=== PATIENT | male | born 1970 | race Hispanic/Latino ===

== ENCOUNTER 2023-03-09 12:08 | Emergency (ER) | payer SELFPAY ==
[~2023-03-09] VITALS: Ht 182.9 cm; Wt 72.0 kg
[2023-03-09] VITALS (8 sets, daily range): BP systolic 107–138; BP diastolic 53–94
[2023-03-09 12:54] LABS: BASO% 0.3 % (0-3); EOS% 0.8 % (0-8); HEMATOCRIT 49.8 % (39.0-50.0); HEMOGLOBIN 16.1 g/dl (14.0-18.0); IMMATURE GRANULOCYTES 0.4 % (0.0-5.0); LYMPH% 10.1 % (15-41); MEAN CELL VOLUME 91.7 fL CALC (80.0-100.0); MEAN CORPUSCULAR HGB 29.7 pG CALC (26.0-32.0); MEAN CORPUSCULAR HGB CONC 32.3 g/dL CAL (32.0-36.0); MONO% 2.6 % (2-13); NEUT# 9.65 thou/uL (1.82-7.42); NEUT% 85.8 % (42-76); RED BLOOD COUNT 5.43 mill/uL (4.70-6.10); RED CELL DISTRI WIDTH 12.4 % (11.5-15.5)
[2023-03-09 13:08] LABS: ALBUMIN 4.5 g/dL (3.2-5.0); ALKALINE PHOSPHATASE 120 u/l (38-126); ANION GAP 12 (6-22 (CALC)); BILIRUBIN, TOTAL 0.6 mg/dL (0.2-1.3); BUN 8 mg/dL (9-20); BUN/CREATININE RATIO 12 (12-20 (CALC)); CARBON DIOXIDE 26 mmol/l (22-30); CHLORIDE 107 mmol/l (95-108); CREATININE 0.7 mg/dL (0.7-1.3); GFR FOR AFR.AMER. > 60 ML/MIN (>=60 (CALC)); GFR OTHER RACES > 60 ML/MIN (>=60 (CALC)); POTASSIUM 4.3 mmol/l (3.5-5.1); SGOT/AST 42 u/l (17-59); SODIUM 140 mmol/l (137-146); TOTAL PROTEIN 8.1 g/dL (6.3-8.2)
[2023-03-09] MEDS ORDERED: ZOFRAN4 MG/TAB PO (14:03)
[2023-03-09] MEDS ORDERED: MECLIZINE 2525 MG PO (14:03)
== END 2023-03-09 14:38 | disposition home or self-care (01) | DRG 149 ==
LOC: ED 12:08
PROVIDERS: Family Medicine
DX: R42 Dizziness and giddiness (principal)